=== PATIENT | female | born 1945 | race Caucasian/White ===

== ENCOUNTER 2018-02-12 08:18 | Outpatient (CLI) | payer MEDICARE, BC | END 2018-02-12 08:19 | disposition home or self-care (01) | LOC: BICMAMMO 08:18 | DX: Z13.820 Encounter for screening for osteoporosis (principal); M85.89 Other specified disorders of bone density and structure, multiple sites | CPT/HCPCS: 77080 ==

== ENCOUNTER 2018-02-26 12:49 | Emergency (ER) | payer BC, MEDICARE ==
[2018-02-26 13:33] LABS: #Eosinphils 0.5 thou/uL (0.0-0.7); #Lymphocytes 1.8 thou/uL (1.20-3.40); #Monocytes 0.4 thou/uL (0.11-0.59); #Neutrophils 2.5 thou/uL (1.40-6.50); %Basophils 0.7 % (0.0-1.0); %Eosinophils 8.9 % (0.0-10.0); %Lymphocytes 34.6 % (21.0-51.0); %Monocytes 7.6 % (0.0-10.0); %Neutrophils 48.2 % (42.0-75.0); Mean Corpuscular HGB CONC 32.9 g/dL (32.0-36.0); Mean Corpuscular Hemoglobin 30.8 pg (27.0-31.0); Mean Corpuscular Volume 93.7 fl (81.0-99.0); Mean Platelet Volume 7.1 fL (7.4-10.4); Platelet Count 218 thou/uL (130-400); Red Blood Cell (RBC) Count 4.87 mill/uL (4.20-5.40); White Blood Cell (WBC) Count 5.1 thou/uL (4.8-10.8)
[2018-02-26 13:56] LABS: ALT (SGPT) 22 U/L (8-55); AST (SGOT) 29 U/L (5-34); Albumin 4.7 g/dL (3.4-4.8); Alkaline Phosphatase 76 U/L (40-150); Anion Gap 8 mmol/L (10-20); BUN (Urea Nitrogen) 16 mg/dL (9.8-20.1); Bilirubin, Total 0.6 mg/dL (0.2-1.2); Calc. Creatinine Clearance 0 mL/min (70-130); Calcium 10.3 mg/dL (7.8-10.44); Carbon Dioxide 31 mmol/L (23-31); Chloride 104 mmol/L (98-107); Estimated GFR-MDRD 54; Globulin 3.3 g/dL (2.4-3.5); Glucose 99 mg/dL (80-115); Potassium 4.3 mmol/L (3.5-5.1); Sodium 139 mmol/L (136-145)
--- NOTE | 2018-02-26 14:05 | CT ---
CT BRAIN WITHOUT CONTRAST: HISTORY: Dizziness with right arm tingling. FINDINGS: No evidence of infarct, hemorrhage, midline shift, or abnormal extraaxial fluid collections are seen. The ventricular size is appropriate and the basilar cisterns patent. The bony calvarium is intact. The visualized paranasal sinuses and mastoid air cells are well aerated. IMPRESSION: No Ct evidence of acute intracranial process. POS: OFF
[2018-02-26 14:27] LABS: Bilirubin Negative (Negative); Blood, Urine Negative (Negative); Clarity CLEAR (Clear); Glucose, Urine (Dipstick) Negative (Negative); Leukocyte Negative (Negative); Nitrite Negative (Negative); Protein, Urine (Dipstick) Negative (Neg-Trace); Specific Gravity, Urine 1.008 (1.002-1.036); Urobilinogen 0.2 mg/dL (0.2-1.0)
[2018-02-26 14:33] LABS: Troponin I Less than 0.010 ng/mL (< 0.028)
--- NOTE | 2018-02-26 15:22 | RAD ---
AP VIEW CHEST: INDICATIONS: Dizziness with right arm tingling. COMPARISON: None. FINDINGS: No focal consolidation is present. There is mild cardiomegaly with mild pulmonary vascular congestio n. No definite pleural effusion or pneumothorax is evident. No acute osseous abnormality is evident . IMPRESSION: Mild cardiomegaly with mild pulmonary vascular congestion. POS: H
[2018-02-26] MEDS ORDERED: methylPREDNISolone Sod Succ/PF 125 MG/2 ML VIAL ONE (15:38)
[2018-02-26] MEDS ORDERED: Metoclopramide HCl 10 MG/2 ML VIAL ONE (15:38)
[2018-02-26] MEDS ORDERED: Meclizine HCl 25 MG TAB ONE (15:38)
== END 2018-02-26 17:20 | disposition home or self-care (01) ==
LOC: ERS 12:49
DX: H81.13 Benign paroxysmal vertigo, bilateral (principal); M81.0 Age-related osteoporosis without current pathological fracture
CPT/HCPCS: 36415; 70450; 71045; 80053; 81003; 82553; 84484; 85025; 93005; 96365; 96375; J2765; J2930

== ENCOUNTER 2018-03-12 13:02 | Outpatient (CLI) | payer BC, MEDICARE | END 2018-03-12 13:03 | disposition home or self-care (01) | LOC: BICMAMMO 13:02 | PROVIDERS: ATTEND Family Medicine | DX: Z12.31 Encounter for screening mammogram for malignant neoplasm of breast (principal); Z80.3 Family history of malignant neoplasm of breast | CPT/HCPCS: 77063; 77067 ==

== ENCOUNTER 2020-08-04 07:38 | Outpatient (CLI) | payer MEDICARE, OTHER ==
--- NOTE | 2020-08-04 08:52 | BD ---
BONE DENSITOMETRY USING DEXA: HISTORY: Postmenopausal screening for osteoporosis. FINDINGS: Lumbar Spine: BMD (g/cm2) L1 0.914 T-Score: -0.7 Z-Score: 1.4 L2 0.836 T-Score: -1.7 Z-Score: 0.5 L3 0.752 T-Score: -3.0 Z-Score: -0.6 L4 0.758 T-Score: -2.8 Z-Score: -0.3 L1-L4 0.808 T-Score: -2.2 Z-Score: 0.1 Femoral Neck: 0.547 T-Score: -2.7 Z-Score: 0.7 Total Femur: 0.753 T-Score: -1.5 Z-Score: 0.1 Impression: Osteoporosis. POS: OFF
== END 2020-08-04 07:39 | disposition home or self-care (01) ==
LOC: BICMAMMO 07:38
PROVIDERS: ATTEND Family Medicine
DX: Z13.820 Encounter for screening for osteoporosis (principal); Z78.0 Asymptomatic menopausal state; M81.0 Age-related osteoporosis without current pathological fracture
CPT/HCPCS: 77080

== ENCOUNTER 2020-09-17 19:59 | Emergency (ER) | payer MEDICARE, OTHER ==
[~2020-09-17 19:59] MED LIST: Iopamidol-370 76% 500 ML 1 ML ONE
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
[2020-09-17] MEDS ORDERED: Ketorolac Tromethamine 30 MG/ML VIAL ONE (22:28)
== END 2020-09-17 22:58 | disposition home or self-care (01) ==
LOC: ERS 19:59
DX: S22.31XA Fracture of one rib, right side, initial encounter for closed fracture (principal); M19.90 Unspecified osteoarthritis, unspecified site; Z79.899 Other long term (current) drug therapy; V43.52XA Car driver injured in collision with other type car in traffic accident, initial encounter
CPT/HCPCS: 71260; 74177; 96374; J1885; Q9967

== ENCOUNTER 2021-03-22 11:36 | Emergency (ER) | payer MEDICARE, OTHER ==
[2021-03-22 12:05] LABS: #Basophils 0.1 thou/uL (0.0-0.2); #Eosinphils 0.5 thou/uL (0.0-0.7); #Lymphocytes 1.6 thou/uL (1.20-3.40); #Monocytes 0.4 thou/uL (0.11-0.59); #Neutrophils 2.4 thou/uL (1.40-6.50); %Basophils 1.4 % (0.0-1.0); %Eosinophils 10.6 % (0.0-10.0); %Lymphocytes 31.6 % (21.0-51.0); %Monocytes 7.5 % (0.0-10.0); Hemoglobin 14.7 g/dL (12.0-16.0); Mean Corpuscular HGB CONC 33.4 g/dL (32.0-36.0); Mean Corpuscular Hemoglobin 31.7 pg (27.0-31.0); Mean Corpuscular Volume 94.8 fL (78.0-98.0); Mean Platelet Volume 7.2 fL (7.4-10.4); Platelet Count 235 thou/uL (130-400); RBC Distribution Width 11.8 % (11.5-14.5); Red Blood Cell (RBC) Count 4.65 mill/uL (4.20-5.40)
[2021-03-22 12:27] LABS: ALT (SGPT) 12 U/L (8-55); AST (SGOT) 20 U/L (5-34); Albumin 4.4 g/dL (3.4-4.8); Alkaline Phosphatase 55 U/L (40-110); Anion Gap 12 mmol/L (10-20); BUN (Urea Nitrogen) 10 mg/dL (9.8-20.1); Bilirubin, Total 0.5 mg/dL (0.2-1.2); Calc. Creatinine Clearance 0 mL/min (70-130); Calcium 9.5 mg/dL (7.8-10.44); Carbon Dioxide 28 mmol/L (23-31); Chloride 104 mmol/L (98-107); Globulin 3.2 g/dL (2.4-3.5); Glucose 108 mg/dL (83-110); Potassium 3.9 mmol/L (3.5-5.1); Protein, Total 7.6 g/dL (5.8-8.1); Sodium 140 mmol/L (136-145)
[2021-03-22 14:46] LABS: Troponin I 0.013 ng/mL (< 0.028)
== END 2021-03-22 15:25 | disposition home or self-care (01) ==
LOC: ERS 11:36
DX: R07.9 Chest pain, unspecified (principal); Z79.899 Other long term (current) drug therapy
CPT/HCPCS: 36415; 71045; 80053; 84484; 85025; 93005